=== PATIENT | male | born 1995 | race Caucasian/White ===

== ENCOUNTER 2018-02-19 05:04 | Emergency (ER) | payer OTHER ==
[~2018-02-19] VITALS: Ht 175.3 cm; Wt 70.8 kg
[2018-02-19 05:10] VITALS: Ht 175.3 cm; Wt 70.8 kg
[2018-02-19 06:16] VITALS: BP 121/73
== END 2018-02-19 06:31 | disposition home or self-care (01) ==
LOC: ED 05:04
DX: S05.12XA Contusion of eyeball and orbital tissues, left eye, initial encounter (principal); H11.32 Conjunctival hemorrhage, left eye; F41.9 Anxiety disorder, unspecified; Y04.2XXA Assault by strike against or bumped into by another person, initial encounter